=== PATIENT | male | born 1985 | race Caucasian/White ===

== ENCOUNTER 2019-07-01 17:23 | Emergency (ER) | payer MEDICAID, OTHER ==
[2019-07-01] MEDS ORDERED: Ativan 0.5 MG PO ONE (17:55)
[2019-07-01] MEDS ORDERED: TORAdol 30 mg Injection IM ONE (17:55)
--- NOTE | 2019-07-01 17:58 | ERPHSYRPT ---
- History of Present Illness Time Seen by Provider: 07/01/19 17:56 Source: patient Patient Subjective Stated Complaint: pt reports increasing back pain for approx one week. states he has had back problems over the years with no definitive diagnosis. reports he has an appt next week with a specialist to address this issue. pt chandrakant any injury or accident. Triage Nursing Assessment: pt is aox3, ambulatory to trt room with slow steady gait, pupils perrl,a febrile, resps easy and non labored, cap refill < 3 seconds , skin pink warm dry. pt ROM, sensation intact. Physician History: mild to mod lower back ache nonrad for one week, no injury, no fever, no incont , hx chronic back problems, pt is ambulatory Allergies/Adverse Reactions: No Known Drug Allergies Allergy (Unverified 05/04/13 18:38) Hx Tetanus, Diphtheria Vaccination/Date Given: (unk) Hx Influenza Vaccination/Date Given: No Hx Pneumococcal Vaccination/Date Given: No Immunizations Up to Date: Yes - Review of Systems Constitutional: No Fever Respiratory: No Dyspnea Cardiac: No Chest Pain Abdominal/Gastrointestinal: No Abdominal Pain Genitourinary Symptoms: No Incontinence Musculoskeletal: Back Pain, No Neck Pain Skin: No Rash Neurological: No Dizziness - Past Medical History Pertinent Past Medical History: No Cardiac History: Other Musculoskeletal History: Fractures, Other History: Other Other Medical History: RACING HEART RATE, SPINDOL PHECEOSIS, HYDRACIL - Past Surgical History Past Surgical History: Yes Gastrointestinal: Hernia Repair Musculoskeletal: Orthopedic Surgery Other Surgical History: RIGHT ANKLE - Social History Smoking Status: Never smoker Exposure to second hand smoke: No Alcohol Use: Socially Drug Use: none Patient Lives Alone: No Significant Family History: no pertinent family hx - Nursing Vital Signs Nursing Vital Signs: Initial Vital Signs Temperature 97.8 F 07/01/19 17:31 Pulse Rate 105 H 07/01/19 17:31 Respiratory Rate 20 07/01/19 17:31 Blood Pressure 139/91 07/01/19 17:31 O2 Sat by Pulse Oximetry 97 07/01/19 17:31 Pain Scale Pain Intensity 12 - Physical Exam General Appearance: no apparent distress Neck Exam: normal inspection Respiratory Exam: normal breath sounds Cardiovascular Exam: regular rate/rhythm Gastrointestinal Exam: soft, No tenderness Back Exam: muscle spasm, No vertebral tenderness Extremity Exam: pelvis stable Neurologic Exam: alert, oriented x 3, cooperative Skin Exam: normal color, warm, dry SpO2 Interpretation: normal SpO2: 97 - Course Nursing assessment & vital signs reviewed: Yes - CT Exams Lumbar Spine CT Interpretation: Discussed w/radiologist, Other (arthritis and pars defect) Ordered Tests: Active Orders 24 hr Category Date Time Status LUMBAR SPINE W/O [CT] Stat Exams 07/01/19 17:55 Taken Medication Summary Discontinued Medications Generic Name Dose Route Start Last Admin Trade Name Freq PRN Reason Stop Dose Admin Ketorolac Tromethamine 60 mg 07/01/19 17:55 07/01/19 18:23 Toradol 30 Mg Injection IM 07/01/19 17:56 60 mg STAT ONE Administration Ketorolac Tromethamine Confirm 07/01/19 18:17 Toradol 30 Mg Injection Administered 07/01/19 18:18 Dose 60 mg .ROUTE .STK-MED ONE Lorazepam 0.5 mg 07/01/19 17:55 07/01/19 18:23 Ativan 0.5 Mg PO 07/01/19 17:56 0.5 mg STAT ONE Administration Lorazepam Confirm 07/01/19 18:17 Ativan 1 Mg Administered 07/01/19 18:18 Dose 1 mg .ROUTE .STK-MED ONE - Progress Progress: improved Progress Note: see your doctor, norco and ativan warnings given, return if worse, ice and motrin and rest 07/01/19 18:[address] Pike at 19:00 07/01/19 18:44 Counseled pt/family regarding: diagnosis, need for follow-up, rad results - Departure Departure Disposition: Home Clinical Impression: Back pain Qualifiers: Back pain location: low back pain Chronicity: acute Back pain laterality: unspecified Sciatica presence: unspecified whether sciatica present Qualified Code(s): M54.5 - Low back pain Condition: Stable Critical Care Time: No Instructions: Low Back Pain (DC) Prescriptions: Hydrocodone/APAP 5/325 [[place] 5/325 mg] 1 each PO Q4-6HPRN PRN #10 tablet MDD 4 PRN Reason: Moderate Pain
[2019-07-01] MEDS ORDERED: Ativan 1 MG ONE (18:17)
[2019-07-01] MEDS ORDERED: TORAdol 30 mg Injection ONE (18:17)
[2019-07-01 19:08] VITALS: BP 133/77; PULSE 77; O2SAT 99
--- NOTE | 2019-07-01 22:27 | XRAY ---
Indication: Low back pain one week. No known injury. Multiple contiguous axial images obtained through the lumbar spine. Sagittal and coronal reformatted images obtained. Comparison: None Axial images through the T12-L5 levels negative for large disc herniation, spinal canal, or foraminal stenosis. Facets are symmetric. At the L5-S1 level, there is mild broad-based disc bulge without spinal canal encroachment but mild bilateral foraminal narrowing. Incidental bilateral L5 spondylolysis. Sagittal and coronal reformatted images demonstrate normal lumbar lordosis. 5 mm L5 spondylolisthesis. No acute compression fracture or suspicious bony lesions. Visualized noncontrasted soft tissues unremarkable. Impression: L5-S1 bilateral foraminal narrowing due to combination of broad-based disc bulge and L5 spondylolysis with grade 1 spondylolisthesis. Comment: Preliminary interpretation was made by [facility]. No critical discrepancy. CTDI 66.86.
== END 2019-07-01 19:13 | disposition home or self-care (01) ==
LOC: ED 17:23
DX: M54.40 Lumbago with sciatica, unspecified side (principal)
CPT/HCPCS: 72131; 96372; 99284; J1885; A9270-GY